=== PATIENT | male | born 1965 | race Caucasian/White ===

== ENCOUNTER 2022-03-14 11:12 | Outpatient (CLI) | payer BC ==
[2022-03-14] MEDS ORDERED: Iopamidol 370 76% 100 ML VIAL ONE (13:39)
== END 2022-03-14 11:13 | disposition home or self-care (01) ==
LOC: BICCT 11:12
PROVIDERS: ATTEND Internal Medicine Gastroenterology
DX: N28.9 Disorder of kidney and ureter, unspecified (principal)
CPT/HCPCS: 74178; 82565; Q9967